=== PATIENT | male | born 1990 | race Caucasian/White ===

== ENCOUNTER 2018-02-23 21:41 | Emergency (ER) | payer SELFPAY ==
--- NOTE | 2018-02-23 22:29 | EDM.PDOC ---
ED HPI GENERAL MEDICAL PROBLEM - General Chief Complaint: Chest Pain Stated Complaint: CHEST PAIN Time Seen by Provider: 02/23/18 22:21 Source of Information: Reports: Patient, RN Notes Reviewed - History of Present Illness INITIAL COMMENTS - FREE TEXT/NARRATIVE: 27-year-old male comes in having experienced some anterior chest discomfort associated with lightheadedness, dizziness and then numbness of hands and feet bilaterally. He states he was just resting when he felt a twinge of discomfort across his chest. He felt lightheaded and dizzy. He then started getting numbness and tingling of his hands and feet, became much more lightheaded and dizzy. He was short of breath and his spouse states that he was hyperventilating. Now here in the ED where he is much more relaxed symptoms have all resolved. He has no history for heart disease, hypertension or diabetes. He has not been otherwise recently ill. 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 [No Known Home Meds] 02/23/18 [History] Past Medical History - Past Health History Medical/Surgical History: Denies Medical/Surgical History HEENT History: Reports: Impaired Vision Other HEENT History: wears glasses - Past Surgical History GI Surgical History: Reports: Cholecystectomy ED ROS GENERAL - Review of Systems Review Of Systems: See Below Constitutional: Reports: Diaphoresis (Gone) HEENT: Denies: Throat Pain Respiratory: Reports: Shortness of Breath. Denies: Cough (Gone) Cardiovascular: Reports: Chest Pain GI/Abdominal: Reports: Nausea. Denies: Abdominal Pain (Gone), Vomiting (Mild, gone) Musculoskeletal: Denies: Neck Pain, Shoulder Pain, Arm Pain, Back Pain Skin: Denies: Rash Neurological: Reports: Dizziness, Numbness, Tingling (Gone gone) ED EXAM, GENERAL - Physical Exam Exam: See Below General Appearance: Alert, No Apparent Distress Eye Exam: Bilateral Eye: PERRL Throat/Mouth: Normal Inspection Head: Atraumatic Neck: Supple, Full Range of Motion Respiratory/Chest: No Respiratory Distress, Lungs Clear, Normal Breath Sounds Cardiovascular: Regular Rate, Rhythm GI/Abdominal: Soft, Non-Tender Extremities: Normal Inspection, Normal Range of Motion Neurological: Oriented, No Motor/Sensory Deficits Skin Exam: Warm, Dry, Normal Color EKG INTERPRETATION EKG Date: 02/23/18 Rhythm: NSR [place]: Normal P-Wave: Present QRS: Normal ST-T: Normal Course - Vital Signs Last Recorded V/S: Last Vital Signs Temp 97.6 F 02/23/18 22:05 Pulse 60 02/23/18 22:35 Resp 18 02/23/18 22:35 BP 162/96 H 02/23/18 22:35 Pulse Ox 100 02/23/18 22:35 - Orders/Labs/Meds Orders: Active Orders 24 hr Category Date Time Status EKG Documentation Completion [RC] ASDIRECTED Care 02/23/18 22:06 Active EKG 12 Lead [EK] Stat Ther 02/23/18 22:06 Ordered - Re-Assessments/Exams Free Text/Narrative Re-Assessment/Exam: 02/23/18. 22:45 EKG is normal. It is clear that patient was hyperventilating at one point after onset of initial symptoms. KG is perfectly normal, sinus rhythm at this time, no ectopy. Further workup not clinically indicated at this time. Patient is comfortable with that. Discharge instructions as documented. Departure - Departure Time of Disposition: 22:28 Disposition: Home, Self-Care 01 Condition: Fair Clinical Impression: Atypical chest pain Instructions: Nonspecific Chest Pain Referrals: Chuy Coppola Jr, MD [Primary Care Provider] - Forms: ED Department Discharge Additional Instructions: rest, your heart and lungs check out well at this time. Follow up clinic in 2 to 3 days or next available appt. for recheck, call for appt., Return to ED if symptoms worsening in any way. - My Orders Last 24 Hours: My Active Orders 02/23/18 22:06 EKG Documentation Completion [RC] ASDIRECTED EKG 12 Lead [EK] Stat - Assessment/Plan Last 24 Hours: My Active Orders 02/23/18 22:06 EKG Documentation Completion [RC] ASDIRECTED EKG 12 Lead [EK] Stat
[2018-02-24 00:56] VITALS: BP 162/96
== END 2018-02-23 22:38 | disposition home or self-care (01) ==
LOC: JD.ED 21:41
DX: R07.89 Other chest pain (principal)
CPT/HCPCS: 93005; 93010; 99284-25

== ENCOUNTER 2023-02-18 21:43 | Emergency (ER) | payer MEDICAID ==
[2023-02-18] MEDS ORDERED: Carbamide Peroxide 6.5% Otic Soln 15 ML Bottle EARRT ONE (23:32)
[2023-02-18] MEDS ORDERED: Docusate Sodium 100 MG Cap PO ONE (23:39)
[2023-02-19] MEDS ORDERED: Hydrocortisone/Neomycin/Polymyxin B Otic Susp 10 ML Bottle EARRT ONE (01:23)
[2023-02-19 02:14] VITALS: BP 163/98; PULSE 66
== END 2023-02-19 01:45 | disposition home or self-care (01) ==
LOC: JD.ED 21:43
DX: H60.91 Unspecified otitis externa, right ear (principal)
CPT/HCPCS: 69209; 99283; A9270

== ENCOUNTER 2024-06-22 19:11 | Emergency (ER) | payer MEDICAID ==
[2024-06-22 20:12] LABS: BASOPHILS PERCENT AUTO 0.4 % (0.0-1.0); EOSINOPHILS ABSOLUTE AUTO 0.2 K/mm3 (0.0-0.4); EOSINOPHILS PERCENT AUTO 2.3 % (0.0-6.0); HEMATOCRIT 44.8 % (42.0-52.0); HEMOGLOBIN 16.1 gm/dl (14.0-18.0); IMMATURE GRAN ABSOLUTE AUTO 0.03 K/mm3 (0.00-0.05); IMMATURE GRAN PERCENT AUTO 0.3 % (0.0-0.4); LYMPHOCYTES ABSOLUTE AUTO 2.5 K/mm3 (1.0-4.8); LYMPHOCYTES PERCENT AUTO 27.2 % (24.0-44.0); MEAN CORPUSCULAR HEMOGLOBIN 29.1 pg (28.0-32.0); MEAN CORPUSCULAR HGB CONC 35.9 g/dl (32.0-36.0); MEAN PLATELET VOLUME 9.5 fl (9.4-12.4); MONOCYTES ABSOLUTE AUTO 0.8 K/mm3 (0.0-0.8); MONOCYTES PERCENT AUTO 8.6 % (0.0-8.0); NEUTROPHILS ABSOLUTE AUTO 5.5 K/mm3 (1.8-7.7); NEUTROPHILS PERCENT AUTO 61.2 % (41.0-71.0); PLATELET COUNT,PLT 218 K/mm3 (150-400); RED BLOOD CELL COUNT 5.53 M/mm3 (4.52-5.90)
[2024-06-22 20:39] LABS: A/G RATIO 1.1 (1-2); ALBUMIN 3.7 g/dl (3.4-5.0); ANION GAP 10.7 (5-15); BILIRUBIN TOTAL 0.7 mg/dL (0.2-1.0); BUN/CREATININE RATIO 12.5 (14-18); CALCIUM 8.4 mg/dL (8.5-10.1); CREATININE 1.2 mg/dL (0.7-1.3); EST CRCL DRUG DOSING (CG) 94.13 mL/min; POTASSIUM,K 3.7 mEq/L (3.5-5.1); PROTEIN TOTAL,TP 7.1 g/dl (6.4-8.2); TSH 1.454 uIU/mL (0.358-3.74)
[2024-06-22] MEDS: Ketorolac 60 MG/2 ML SDV IM ONE (21:24)
[2024-06-22 22:33] VITALS: BP 174/92; PULSE 62
== END 2024-06-22 22:30 | disposition home or self-care (01) ==
LOC: JD.ED 19:11
DX: R51.9 Headache, unspecified (principal); I10 Essential (primary) hypertension; Z79.899 Other long term (current) drug therapy
CPT/HCPCS: 36415; 70450; 71046; 80053; 84443; 85025; 93005; 96372; 99284; J1885; 93010; 99283